=== PATIENT | female | born 1945 | race Caucasian/White ===

== ENCOUNTER 2017-08-30 19:11 | Emergency (ER) | payer MEDICARE, OTHER ==
[~2017-08-30] VITALS: Ht 157.5 cm; Wt 67.1 kg
[~2017-08-30 19:11] MED LIST: ASPI-496 PO; LISI-170 PO; SIMV40TA3 PO
[2017-08-30 20:11] LABS: BASOPHILS # (AUTO) 0.04 x10^3/uL (0-0.1); BASOPHILS % (AUTO) 1 % (0-1); EOSINOPHILS # (AUTO) 0.19 x10^3/uL (0-0.4); EOSINOPHILS % (AUTO) 2 % (1-7); LYMPHOCYTES # (AUTO) 2.35 x10^3/uL (1-3.4); LYMPHOCYTES % (AUTO) 29 % (22-44); MD NO; MEAN CORPUSCULAR HEMOGLOBIN 29.8 pg (27.0-34.8); MEAN CORPUSCULAR VOLUME 87.7 fL (80-100); MEAN PLATELET VOLUME 9.1 fL (7.4-10.4); MONOCYTES % (AUTO) 7 % (2-9); NEUTROPHILS # (AUTO) 4.87 x10^3/uL (1.8-6.8); NEUTROPHILS % (AUTO) 61 % (42-75); PLATELET COUNT 201 x10^3/uL (130-400); RED BLOOD COUNT 4.55 x10^6/uL (3.82-5.3); RED CELL DISTRIBUTION WIDTH 13.6 % (9.6-15.2)
[2017-08-30 20:17] LABS: ALBUMIN 4.1 g/dL (3.4-5.0); ANION GAP 6 mmol/L (5-15); CALCIUM 9.3 mg/dL (8.5-10.1); CHLORIDE 114 mmol/L (98-107)
[2017-08-30 20:21] LABS: TROPONIN I < 0.015 ng/mL (0.000-0.045)
[2017-08-30 20:30] LABS: T4 (THYROXINE) 9.2 mcg/dL (4.8-13.9)
[2017-08-30 20:39] LABS: THYROID STIMULATING HORMONE 3.05 mIU/L (0.358-3.740)
[2017-08-30 21:32] VITALS: BP 148/76
== END 2017-08-30 21:35 | disposition home or self-care (01) ==
LOC: ED 21:30
DX: I49.3 Ventricular premature depolarization (principal); R00.2 Palpitations; E78.00 Pure hypercholesterolemia, unspecified; E11.9 Type 2 diabetes mellitus without complications; I10 Essential (primary) hypertension; R42 Dizziness and giddiness; Z87.891 Personal history of nicotine dependence
CPT/HCPCS: 36415; 71045; 80048; 82040; 83735; 84436; 84443; 84484; 85025; 93005; 99285